=== PATIENT | male | born 1975 | race Caucasian/White ===

== ENCOUNTER 2016-11-17 07:58 | Emergency (ER) | payer OTHER ==
[~2016-11-17] VITALS: Ht 170.2 cm; Wt 104.3 kg
[~2016-11-17 07:58] MED LIST: IBUPROFEN 600600 M1 PO; MOBIC15 MG PO; NOHOMEMEDICATIONS; NORFLEX100 MG PO; PRILOSEC40 MG PO
[2016-11-17] MEDS ORDERED: UNK ABX (08:01)
[2016-11-17] MEDS ORDERED: ULTRAM 50MG TAB50 MG PO (08:50)
[2016-11-17 09:20] VITALS: BP 114/78
== END 2016-11-17 09:21 | disposition home or self-care (01) ==
LOC: ER 07:58
DX: S83.92XA Sprain of unspecified site of left knee, initial encounter (principal); J45.909 Unspecified asthma, uncomplicated; F17.210 Nicotine dependence, cigarettes, uncomplicated; Z90.89 Acquired absence of other organs; W01.0XXA Fall on same level from slipping, tripping and stumbling without subsequent striking against object, initial encounter; Y93.89 Activity, other specified; Y92.89 Other specified places as the place of occurrence of the external cause; Y99.9 Unspecified external cause status

== ENCOUNTER 2017-04-07 22:50 | Emergency (ER) | payer OTHER ==
[~2017-04-07] VITALS: Ht 180.3 cm; Wt 108.0 kg
[~2017-04-07 22:50] MED LIST changes: +ULTRAM 50MG TAB50 MG PO; +UNK ABX
[2017-04-08 00:34] LABS: ABSOLUTE NEUTROPHILS 3.7 thou/uL (1.4-8.2); BASOPHILS 0.4 % (0.0-2.0); EOSINOPHILS 4.7 % (0.0-3.0); HEMATOCRIT 43.6 % (42.0-52.0); HEMOGLOBIN 15.1 gm/dL (14.0-18.0); LYMPHOCYTES 28.4 % (24.0-44.0); MCH 30.2 pg (26.0-34.0); MCHC 34.6 g/dL (28.0-37.0); MCV 87.1 fL (80.0-100.0); MONOCYTES 9.9 % (1.0-8.0); PLATELET COUNT 198 thou/uL (150-400); POLYS 56.6 % (36.0-66.0); RDW 13.6 % (10.5-14.5); WBC 6.5 thou/uL (4.0-11.0)
[2017-04-08 00:41] LABS: MANUAL DIFF NO
[2017-04-08 00:43] LABS: CALCIUM 8.1 mg/dL (8.5-10.1); CREATININE 1.2 mg/dL (0.7-1.3); POTASSIUM 3.7 mmol/L (3.5-5.1)
[2017-04-08] MEDS ORDERED: BACTRIM DS TAB1 EACH PO (01:20)
[2017-04-08] MEDS ORDERED: NAPROSYN500 M1 PO (01:21)
[2017-04-08 02:04] VITALS: BP 149/72
== END 2017-04-08 02:05 | disposition home or self-care (01) ==
LOC: ER 22:50
PROVIDERS: Emergency Medicine
DX: L03.114 Cellulitis of left upper limb (principal); J45.909 Unspecified asthma, uncomplicated; F17.210 Nicotine dependence, cigarettes, uncomplicated; Z90.49 Acquired absence of other specified parts of digestive tract

== ENCOUNTER 2018-09-01 02:08 | Inpatient (IN) | payer OTHER ==
[~2018-09-01] VITALS: Ht 180.3 cm; Wt 115.7 kg
--- NOTE | ~2018-09-01 | HC ---
[facility] [place] [address] CONSULTATION Name: MARCELA CASTREJON Room #: 456-P [facility] IN ..#: [id number] Admission: 09/01/18 Attend Phys: Estephanie Cook Discharge: Date of : 75 Report #: [id number] THIS REPORT FOR: //name// CC: MARKELL physician/PCP Estephanie Cook DATE OF SERVICE: 09/01/2018 REASON FOR CONSULTATION/CHIEF COMPLAINT: Right shoulder pain. HISTORY OF PRESENT ILLNESS: The patient is a 43-year-old male who reports many-month history of right shoulder pain that has progressively worsened. He has had no specific treatment. Denies a specific injury, although does report a history of a lot of sports in his youth. He reports the pain is worse at night. He is unable to sleep on that shoulder and its worse with use. There is not a significant amount of pain at rest. He reports difficulty moving the arm above his head. He also reports numbness and tingling in his right hand, worse with work and at night. He describes the pain as a burning pain. He denies any radicular type symptoms and has had no treatment for this. This is being on for a few years. PAST MEDICAL HISTORY: Significant for COPD. HOME MEDICATIONS: Include tramadol, Bactrim, and naproxen, as well as sertraline. ALLERGIES: METOPROLOL. SOCIAL HISTORY: He is right-hand dominant, works as a cook. Denies drinking alcohol or smoking cigarettes. He did have a smoking history in the past. PAST SURGICAL HISTORY: He reports having 6 bowel obstructions, appendectomy and left ankle surgery. REVIEW OF SYSTEMS: NEUROLOGIC: Reports numbness and tingling to the right upper extremity. MUSCULOSKELETAL: See HPI. PHYSICAL EXAMINATION: GENERAL: The patient is alert and oriented, he interacts appropriately. He is a well-developed, well-nourished male, in no acute distress with normal affect and mannerisms. VITAL SIGNS: Most recent vital signs show pulse oximetry is 94%, blood pressure 134/89, heart rate 114, respiratory rate is 28. EXTREMITIES: On examination of his right upper extremity, there is minimal pain with passive range of motion of the shoulder. He has tenderness to palpation at [address] [address] CONSULTATION Name: MARCELA CASTREJON Room #: 456-P [facility] IN M.R.#: [id number] Admission: 09/01/18 Attend Phys: Estephanie Cook Discharge: Date of : 75 Report #: [id number] the AC joint, the glenohumeral joint and lateral aspect of the shoulder at the deltoid insertion. He is able to forward flex to approximately 90 degrees with pain. With passive flexion, there is significantly less pain. His external rotation strength is 5/5 and not significantly painful. Internal rotation is 4/5 with significant pain. Abduction is painful as well. Due to his pain, I was unable to assess internal rotation. On right hand exam, sensation is intact to light touch throughout. Brisk capillary refill. He has no atrophy and he has no tenderness to the A1 pulleys. No locking or clicking. Intrinsics are 5/5. Tinel's is negative at the wrist and Durkan's is positive at the right wrist and Phalen's is negative. LABORATORY STUDIES: Show on 09/01/2018, white blood cell count 14.1, hemoglobin 14.9, hematocrit of 44, platelet count 220. Chemistry is grossly normal except for an elevated creatinine at 1.6. RADIOGRAPHS: Three views of the right shoulder are pending. IMPRESSION AND PLAN: 1. Right probable carpal tunnel syndrome. We discussed this diagnosis as well as treatment options. I recommend a wrist brace at night and he should call my office or see me as an outpatient if his numbness and tingling does not resolve in the next 4-6 weeks and we can order a nerve conduction test with possibly EMG. 2. Right probable rotator cuff tear. The patient gives a history of a chronic problem with no acute injury. We will await x-rays. I advised him that he may let the nurses apply heat. If he feels like this is helpful, we may need to get an MRI and he may need to follow up as an outpatient with one of my shoulder partners. Questions were encouraged and answered to the best of my ability. By: [id number] Subha Jaimes MD /nt
[~2018-09-01 02:08] MED LIST changes: +BACTRIM DS TAB1 EACH PO; +NAPROSYN500 M1 PO
[2018-09-01 02:09] VITALS: BP 134/89
[2018-09-01 02:27] LABS: BE(vivo) -0.7 mmol/L (-2 to +3); HCO3 22.9 mmol/L (22.0-26.0); PCO2 VENOUS 34.9 mmHg (41.0-51.0); PO2 VENOUS 83.1 mmHg (35.0-45.0)
[2018-09-01 02:36] LABS: ABSOLUTE NEUTROPHILS 9.9 thou/uL (1.4-8.2); BASOPHILS 0.4 % (0.0-2.0); EOSINOPHILS 0.3 % (0.0-3.0); HEMOGLOBIN 14.9 gm/dL (14.0-18.0); MCH 29.4 pg (26.0-34.0); MCHC 33.8 g/dL (28.0-37.0); MCV 87.1 fL (80.0-100.0); MONOCYTES 9.4 % (1.0-8.0); PLATELET COUNT 220 thou/uL (150-400); POLYS 69.9 % (36.0-66.0); RBC 5.05 mil/uL (4.50-6.00); RDW 14.1 % (10.5-14.5); WBC 14.1 thou/uL (4.0-11.0)
[2018-09-01 02:43] LABS: CALCIUM 8.5 mg/dL (8.5-10.1); CREATININE 1.6 mg/dL (0.7-1.3); POTASSIUM 4.1 mmol/L (3.5-5.1)
[2018-09-01 02:49] LABS: ALBUMIN 3.8 g/dL (3.4-5.0); TOTAL BILIRUBIN 0.6 mg/dL (<0.1-1.0); TOTAL PROTEIN 7.3 g/dL (6.4-8.2)
[2018-09-01] MEDS ORDERED: ZOLOFT25 MG PO (03:15)
[2018-09-01 04:49] VITALS: BP 137/95
[2018-09-01 05:19] VITALS: BP 150/93
[2018-09-01 06:42] VITALS: BP 147/82
--- NOTE | 2018-09-01 11:10 | NUR ---
ASSUMED CARE THIS AM, SHIFT ASSESSMENT DONE, MEDS GIVEN, VSS. REPROTED RIGHT SHOULDER PAIN, PRN PAIN MED GIVEN. ON IV ANTIBIOTICS. REMAAINS ON 2L NC, LUNGS ARE WHEEZY ON AUSCULTATION. WILL CONTINUE TO ASSESS AND ASSIST WITH ADLs NEEDED.
[2018-09-01 12:21] VITALS: BP 124/72
[2018-09-01 20:08] VITALS: BP 144/71
--- NOTE | 2018-09-01 20:51 | NUR ---
PT AMBULATING TO BATHROOM INDEPENDENTLY AND IS TOLERATING FAIR. [facility] PROVIDING PAIN RELIEF. PT TRASFERRING TO FOR 4E...2100 VIA BED AND STAFF.
--- NOTE | 2018-09-02 02:38 | NUR ---
PT ARRIVED FROM [facility] AT AROUND 2100 HRS. PT IS ALERT AND ORIENTED.UP AD ARTEMIO. ON , REPORTS SOA WITH ACTIVITY.CONTINUES ON RT TREATMENTS. PT C/O R SHOULDER PAIN, GETTING PO HYDROCODONE WITH FAIR RELIEF.HAND ELEVATED ON PILLOW, HEATING PAD APPLIED. APPEARS TO SLEEPING AT THIS TIME. NO FURTHER CONCERNS.
[2018-09-02 04:39] VITALS: BP 139/62
[2018-09-02 06:14] LABS: HEMATOCRIT 41.3 % (42.0-52.0); HEMOGLOBIN 13.9 gm/dL (14.0-18.0); MCH 29.4 pg (26.0-34.0); MCHC 33.6 g/dL (28.0-37.0); MCV 87.5 fL (80.0-100.0); RBC 4.72 mil/uL (4.50-6.00); RDW 14.1 % (10.5-14.5); WBC 12.4 thou/uL (4.0-11.0)
[2018-09-02 06:18] LABS: CALCIUM 8.7 mg/dL (8.5-10.1); CREATININE 0.9 mg/dL (0.7-1.3); POTASSIUM 4.3 mmol/L (3.5-5.1)
[2018-09-02 07:26] VITALS: BP 138/72
--- NOTE | 2018-09-02 08:31 | EKG ---
[address] [address] ELECTROCARDIOGRAM REPORT Name: MARCELA CASTREJON Room #: 431-P ADM IN M.R.#: [id number] Admission: 09/01/18 Attend Phys: Zeb Velasquez MD Discharge: Date of : 75 Report #: [id number] THIS REPORT FOR: //name// [facility] ED Test Date: 2018-09-01 Test Time: 04:55:49 Pat Name: MARCELA CASTREJON Department: Room: 431 Gender: M Internal Salesperson: ankit : 1975 Requested By: Jacqueline Leiva Order Number: [id number] MD: Rashaad Gallegos Measurements Intervals [place] Rate: 105 P: 45 DE: 149 QRS: 77 QRSD: 89 T: 34 QT: 361 QTc: 478 Interpretive Statements Sinus tachycardia Borderline prolonged QT interval Compared to ECG 10/20/2014 22:40:21 QT interval has lengthened Electronically Signed On 09-02-2018 8:30:51 EQUIPMENT COORDINATOR by Rashaad Gallegos [email or web address] <ELECTRONICALLY SIGNED> By: Rashaad Gallegos MD, [facility] 09/02/18 [id number] Rashaad Gallegos MD, FACC /EPI
--- NOTE | 2018-09-02 15:23 | 2DMMODE ---
[facility] [address] [place] [address] 2 D/M-MODE ECHOCARDIOGRAM Name: MARCELA CASTREJON Room #: 431-P ADM IN M.R.#: [id number] Admission: 09/01/18 Attend Phys: Zeb Velasquez MD Discharge: Date of : 75 Date of Service: 09/02/18 1523 Report #: [id number] THIS REPORT FOR: //name// APPROVED REPORT Study performed: 09/02/2018 14:46:03 EXAM: Comprehensive 2D, Doppler, and color-flow Echocardiogram Patient Location: Echo lab Room #: 431 Status: routine BSA: 2.34 HR: 93 bpm BP: 138/72 mmHg Rhythm: NSR Other Information Study Quality: Adequate Indications Short of breath. Hx: COPD, tachycardia 2D Dimensions IVSd: 12.43 (7-11mm) LVOT Diam: 22.87 (18-24mm) LVDd: 43.27 mm PWd: 11.92 (7-11mm) Ascending Ao: 32.21 (22-36mm) LVDs: 28.70 (25-40mm) Aortic Root: 33.13 mm Volumes Left Atrial Volume (Systole) Single Plane 4CH: 50.29 mL Single Plane 2CH: 63.40 mL LA ESV Index: 26.00 mL/m2 Mitral Valve E/A Ratio: 1.5 MV Decel. Time: 178.21 ms MV E Max Cristofer.: 0.94 m/s MV A Cristofer.: 0.63 m/s MV PHT: 51.68 ms IVRT: 36.91 ms Pulmonary Valve PV Peak Cristofer.: 1.62 m/s PV Peak Gr.: 10.56 mmHg Pulmonary Vein [facility] [address] [address] 2 D/M-MODE ECHOCARDIOGRAM Name: MARCELA CASTREJON Room #: 431-P ADM IN [facility].#: [id number] Admission: 09/01/18 Attend Phys: Zeb Velasquez MD Discharge: Date of : 75 Date of Service: 09/02/18 1523 Report #: [id number] Vein S: 0.71 m/s P Vein D: 0.62 m/s P Vein S/D Ratio: 1.15 Tricuspid Valve TR Peak Cristofer.: 2.56 m/s RAP Estimate: 5.00 mmHg TR Peak Gr.: 26.12 mmHg PA Pressure: 31.00 mmHg Left Ventricle The left ventricle is normal size. There is normal LV segmental wall motion. Mild concentric left ventricular hypertrophy. Left ventricular systolic function is normal. LVEF is 65%. The left ventricular diastolic function is normal. Right Ventricle The right ventricle is normal size. The right ventricular systolic function is normal. Atria The left atrium size is normal. The right atrium size is normal. Aortic Valve The aortic valve is normal in structure. No aortic regurgitation is present. There is no aortic valvular stenosis. Mitral Valve The mitral valve is normal in structure. Trace mitral regurgitation. No evidence of mitral valve stenosis. Tricuspid Valve The tricuspid valve is normal in structure. Trace tricuspid regurgitation. Estimated PAP is 30-35mmHg. Pulmonic Valve The pulmonary valve is normal in structure. There is no pulmonic valvular regurgitation. Great Vessels The aortic root is normal in size. The ascending aorta is normal in size. IVC is normal in size and collapses >50% with inspiration. [facility] [place] [address] 2 D/M-MODE ECHOCARDIOGRAM Name: MARCELA CASTREJON Room #: 431-P ADM IN M.R.#: [id number] Admission: 09/01/18 Attend Phys: Zeb Velasquez MD Discharge: Date of : 75 Date of Service: 09/02/18 1523 Report #: [id number] Pericardium There is no pericardial effusion. <Conclusion> The left ventricle is normal size. Mild concentric left ventricular hypertrophy. Left ventricular systolic function is normal. The left ventricular diastolic function is normal. The right ventricle is normal size. The left atrium size is normal. The right atrium size is normal. The aortic valve is normal in structure. Trace mitral regurgitation. Trace tricuspid regurgitation. Estimated PAP is 30-35mmHg. <ELECTRONICALLY SIGNED> By: Juliocesar Cruz MD 09/02/18 1523 1523 1523 Juliocesar Cruz MD /INF
--- NOTE | 2018-09-02 15:48 | NUR ---
ASSESSMENT-PT LIVES AT HOME WITH HIS S.O. PT USUALLY ABLE TO GET AROUND OK AND DOES HIS OWN ADLS. BOTH DRIVE. PT WAS WORKING PRIOR TO THIS ILLNESS. NOTIFIED BU PT'S INS THAT HE IS OUT OF NETWORK FOR THIS HOSPITAL AND NEEDS TO TRANSFER TO A [facility]. PT IS INTERESTED IN [facility]. CALLED [facility] [phone] & S/W [facility]. FAXED FACE SHEET & H&P REQUESTED. AWAITING CALL BACK. MESSAGE TO DR ROE TO ALERT OF THE OUT OF NETWORK STATUS.
--- NOTE | 2018-09-02 16:39 | NUR ---
DCP ARRANGED TRANSPORTATION [facility]IA [facility] [facility] FOR [phone] TODAY. UNIT NOTIFIED AND CHART COPY PER US. PT. TRANSFERRING TO [facility]. RM 241.
--- NOTE | 2018-09-02 16:39 | NUR ---
RECEIVED WORD BACK FROM [facility] FROM [facility] THAT DR COSTA S/W THEIR DR AND THEY HAVE ACCEPTED PT TO ROOM 241 AT [facility] AND THAT OUR RN NEEDS TO CALL [facility] AT [phone] TO GIVE REPORT. NOTIFIED DR ROE TO ENTER ORDER FOR THE TRANSFER. ALSO DR ROE SAYS PT MAY TRANSFER BY [facility]. AR[facility]ANGED [facility] FOR [phone]. S/W [facility] IN RADIOLOGY AND ASKED FOR PT'S X-RAY FILMS TO BE CLOUDED TO [facility]. CHART COPY REQUESTED.
[2018-09-02 17:10] VITALS: BP 138/72
[2018-09-02 17:23] VITALS: BP 138/72
--- NOTE | 2018-09-02 17:24 | NUR ---
RESP WAS ABLE TO TAKE PT OFF O2. NOTIFIED DR ROE AND HE CAME TO RE-EVAL PT AND NOW PT ABLE TO DC HOME BUT NEED ALBUTERAL, PREDNISONE, AND DOXYCYCLINE FILLED IN OUTPT PHARMACY BECAUSE HE HAS NO [employer] TILL END OF THE WEEK TO PAY FOR THEM. SCRIPTS TAKEN TO OUTPT PHARMACY. S/W [facility] AND CANCELLED VAN. S/W [facility] AND CANCELLED TRANSFER TO [facility]. PT WILL DRIVE HIMSELF HOME AND S.O. WILL BE THERE WITH HIM TONIGHT.
--- NOTE | 2018-09-02 17:33 | NUR ---
ASSISTED PT WITH MEDS IN OUTPT PHARMACY FOR $89.46, DOXYCYCLINE, ALBUTERAL AND PREDNISONE.
[2018-09-02] MEDS ORDERED: VENTOLIN HFA 1818 GM INH (18:23)
[2018-09-02] MEDS ORDERED: PREDNISONE 10 M10 MG PO (18:23)
[2018-09-02] MEDS ORDERED: DOXYCYCLINE 10100 MG PO (18:23)
--- NOTE | 2018-09-02 19:05 | NUR ---
PT DISCHARGED AT THIS TIME. IV ACSESS DCD, RX'S FILLED AND MEDS TO PATIENT. ALL BELONGINGS PACKED AND SENT WITH PATIENT.
== END 2018-09-02 19:10 | disposition home or self-care (01) | DRG 191 ==
LOC: ER 02:08 → EROBS 04:00 → 4W 04:00 → 4E 04:00 → 4W 05:42 → 4E 21:25
PROVIDERS: Nurse Practitioner Family; Student in an Organized Health Care Education/Training Program; ADMIT Internal Medicine
DX: J44.1 Chronic obstructive pulmonary disease with (acute) exacerbation (principal); N17.9 Acute kidney failure, unspecified; F32.9 Major depressive disorder, single episode, unspecified; J45.909 Unspecified asthma, uncomplicated; Z90.49 Acquired absence of other specified parts of digestive tract; Z88.8 Allergy status to other drugs, medicaments and biological substances; Z87.891 Personal history of nicotine dependence
CPT/HCPCS: 10084

== ENCOUNTER 2018-10-28 12:13 | Emergency (ER) | payer OTHER ==
[~2018-10-28] VITALS: Ht 177.8 cm; Wt 81.7 kg
[~2018-10-28 12:13] MED LIST changes: +DOXYCYCLINE 10100 MG PO; +PREDNISONE 10 M10 MG PO; +VENTOLIN HFA 1818 GM INH; +ZOLOFT25 MG PO
[2018-10-28] MEDS ORDERED: NORCO 5-325 TA1 EACH PO (13:13)
[2018-10-28] MEDS ORDERED: MOBIC7.5 MG PO (13:13)
[2018-10-28 14:04] VITALS: BP 124/73
== END 2018-10-28 13:25 | disposition home or self-care (01) ==
LOC: ER 12:13
DX: G56.01 Carpal tunnel syndrome, right upper limb (principal); J44.9 Chronic obstructive pulmonary disease, unspecified; F17.210 Nicotine dependence, cigarettes, uncomplicated; Z88.8 Allergy status to other drugs, medicaments and biological substances; Z90.49 Acquired absence of other specified parts of digestive tract

== ENCOUNTER 2019-07-05 23:14 | Emergency (ER) | payer OTHER ==
[~2019-07-05] VITALS: Ht 180.3 cm; Wt 111.6 kg
[~2019-07-05 23:14] MED LIST changes: +MOBIC7.5 MG PO; +NORCO 5-325 TA1 EACH PO
[2019-07-05 23:25] LABS: URINE BILIRUBIN NEGATIVE (Negative); URINE BLOOD 3+ (Negative); URINE CLARITY CLEAR; URINE COLOR YELLOW; URINE GLUCOSE-RANDOM* NEGATIVE (Negative); URINE KETONES NEGATIVE (Negative); URINE LEUKOCYTES-REFLEX NEGATIVE (Negative); URINE NITRITE-REFLEX NEGATIVE (Negative); URINE PROTEIN (DIPSTICK) NEGATIVE (Negative); URINE SPECIFIC GRAVITY >= 1.030 (1.005-1.035); URINE UROBILINOGEN 0.2 E.U./dl (0.2-1.0)
[2019-07-05 23:45] LABS: CASTS None Seen /LPF (None Seen); MUCUS None Seen strn/LPF (None Seen); SQUAMOUS None Seen /LPF (0-3)
[2019-07-05 23:46] LABS: BACTERIA-REFLEX None Seen /HPF (None Seen); CRYSTALS None Seen /LPF (None Seen); URINE RBC 3-10 Few /HPF (0-2); URINE WBC-REFLEX 0-5 Rare /HPF (0-5)
[2019-07-06 00:16] LABS: ABSOLUTE NEUTROPHILS 3.6 thou/uL (1.4-8.2); BASOPHILS 0.7 % (0.0-2.0); EOSINOPHILS 2.2 % (0.0-3.0); HEMATOCRIT 43.9 % (42.0-52.0); HEMOGLOBIN 14.7 gm/dL (14.0-18.0); LYMPHOCYTES 42.4 % (24.0-44.0); MCH 29.1 pg (26.0-34.0); MCHC 33.6 g/dL (28.0-37.0); MCV 86.8 fL (80.0-100.0); MONOCYTES 8.9 % (1.0-8.0); PLATELET COUNT 198 thou/uL (150-400); POLYS 45.8 % (36.0-66.0); RBC 5.06 mil/uL (4.50-6.00); RDW 13.8 % (10.5-14.5); WBC 7.8 thou/uL (4.0-11.0)
[2019-07-06 00:23] LABS: CALCIUM 8.8 mg/dL (8.5-10.1); CREATININE 1.5 mg/dL (0.7-1.3); POTASSIUM 3.5 mmol/L (3.5-5.1)
[2019-07-06 00:29] LABS: ALBUMIN 3.7 g/dL (3.4-5.0); TOTAL BILIRUBIN 0.6 mg/dL (<0.1-1.0); TOTAL PROTEIN 7.1 g/dL (6.4-8.2)
[2019-07-06] MEDS ORDERED: ULTRAM 50MG TAB50 MG PO (01:44)
[2019-07-06] MEDS ORDERED: ZOFRAN ODT4 MG PO (01:44)
[2019-07-06 01:50] VITALS: BP 126/92
== END 2019-07-06 01:50 | disposition home or self-care (01) ==
LOC: ER 23:14
PROVIDERS: Physician Assistant
DX: N20.1 Calculus of ureter (principal); F17.210 Nicotine dependence, cigarettes, uncomplicated; J45.909 Unspecified asthma, uncomplicated; J44.9 Chronic obstructive pulmonary disease, unspecified; Z88.8 Allergy status to other drugs, medicaments and biological substances; Z79.899 Other long term (current) drug therapy; Z98.890 Other specified postprocedural states; Z90.49 Acquired absence of other specified parts of digestive tract